=== PATIENT | male | born 1995 | race Hispanic/Latino ===

== ENCOUNTER 2018-04-07 15:14 | Emergency (ER) | payer SELFPAY ==
--- NOTE | 2018-04-07 17:40 | EDM.PDOC ---
Scribed by Dora Donnelly 04/07/18 1711 for Jonathan Spears MD ED HPI GENERAL MEDICAL PROBLEM - General Chief Complaint: Upper Extremity Injury/Pain Stated Complaint: ARM ACHES [id number] Time Seen by Provider: 04/07/18 15:56 Source of Information: Reports: Patient, RN, RN Notes Reviewed History Limitations: Reports: No Limitations - History of Present Illness INITIAL COMMENTS - FREE TEXT/NARRATIVE: Patient presents to ER with complaint of left shoulder pain without specific injury a week or two ago. He has aching deep in the left shoulder that radiates down the deltoid region to the elbow intermittently. Patient states that he does repetitive shoulder and arm movements at his work and knows of no other activity that might have caused this. Denies any swelling or increased warmth of the shoulder. He has no pain in any other joints. Onset: Gradual Duration: Constant Location: Reports: Upper Extremity, Left Quality: Reports: Ache Severity: Moderate Improves with: Reports: None Worsens with: Reports: None Associated Symptoms: Reports: No Other Symptoms Left Shoulder Pain Score (Numeric/FACES): 6 - Related Data Allergies Allergy/AdvReac Type Severity Reaction Status Date / Time No Known Allergies Allergy Verified 04/07/18 15:29 Home Meds: Home Meds . [No Known Home Meds] 04/07/18 [History] Past Medical History - Past Health History Medical/Surgical History: Denies Medical/Surgical History Social & Family History - Tobacco Use Smoking Status *Q: Never Smoker Second Hand Smoke Exposure: No - Recreational Drug Use Recreational Drug Use: No Review of Systems - Review of Systems Review Of Systems: ROS reveals no pertinent complaints other than HPI. ED EXAM, GENERAL - Physical Exam Exam: See Below Exam Limited By: No Limitations General Appearance: Alert, WD/WN, No Apparent Distress Head: Atraumatic, Normocephalic Neck: Normal Inspection, Full Range of Motion Respiratory/Chest: No Respiratory Distress Cardiovascular: Regular Rate, Rhythm Back Exam: Normal Inspection Extremities: Other (left shoulder decreased range of motion abduction and external and internal range of motion. No visible swelling or bruising. No erythematous or increased warmth. ) Neurological: Alert, Oriented, CN II-XII Intact, Normal Cognition, Normal Gait, Normal Reflexes, No Motor/Sensory Deficits Psychiatric: Normal Affect, Normal Mood Skin Exam: Warm, Dry, Intact, Normal Color, No Rash Course - Vital Signs Last Recorded V/S: Last Vital Signs Temp 36.8 C 04/07/18 15:26 Pulse 91 04/07/18 15:26 Resp 18 04/07/18 15:26 BP 140/66 04/07/18 15:26 Pulse Ox 99 04/07/18 15:26 - Orders/Labs/Meds Orders: Active Orders 24 hr Category Date Time Status Shoulder Comp Lt [CR] Urgent Exams 04/07/18 16:36 Taken - Radiology Interpretation Free Text/Narrative:: Left shoulder x-ray: No fracture. No dislocation. No acute findings. See rad report. Departure - Departure Time of Disposition: 17:05 Disposition: Home, Self-Care 01 Condition: Good Clinical Impression: Rotator cuff impingement syndrome of left shoulder - Discharge Information *PRESCRIPTION DRUG MONITORING PROGRAM REVIEWED*: No *COPY OF PRESCRIPTION DRUG MONITORING REPORT IN PATIENT JAMES: No Instructions: Shoulder Pain, [id number], Shoulder Impingement Syndrome Referrals: PCP,None [Primary Care Provider] - Forms: ED Department Discharge Additional Instructions: Rx: Naprosyn 500mg *Take with food. No overhead reaching or repetitive use of the left arm and shoulder. Follow up in clinic in the next week for recheck and orthopedic referral if needed. - My Orders Last 24 Hours: My Active Orders 04/07/18 16:36 Shoulder Comp Lt [CR] Urgent - Assessment/Plan Last 24 Hours: My Active Orders 04/07/18 16:36 Shoulder Comp Lt [CR] Urgent I have read and agree with the documentation that has been completed regarding this visit. By signing this record, I attest that the documentation was completed in my physical presence and is an accurate record of the encounter.
--- NOTE | 2018-04-08 08:35 | CR ---
Clinical history: 22-year-old male left shoulder pain. Interpretation: Humeral head, with Hill-Sachs notch like deformity laterally, is slightly subluxed re lative to the glenoid of the scapula (capsular damage?). Old dislocation? No sign of pathologic skeletal lesion, left shoulder fracture or acute dislocation. No juxta-articula r rotator cuff tendon calcifications. (Subtle diastases acromioclavicular joint but without overlying soft tissue swelling suggesting old t rauma) Underlying ribs are unremarkable in the left lung apex is clear. CONCLUSION: No acute fracture or dislocation. Subtle changes suggesting old trauma (see above).
== END 2018-04-07 17:18 | disposition home or self-care (01) ==
LOC: DL.ED 15:14
DX: M75.42 Impingement syndrome of left shoulder (principal)
CPT/HCPCS: 73030-LT; 99283